=== PATIENT | female | born 1970 ===

== ENCOUNTER 2018-03-03 06:24 | Day surgery (SDC) | payer OTHER ==
[~2018-03-03] VITALS: Ht 152.4 cm; Wt 67.1 kg
[2018-03-03] MEDS ORDERED: SYNTHROID175 MCG (06:40)
[2018-03-03] MEDS ORDERED: DICLOFENAC POTA50 MG PO (13:45)
[2018-03-03] MEDS ORDERED: PERCOCET 5-3251 EACH PO (13:45)
[2018-03-03] MEDS ORDERED: COLACE100 MG PO (13:45)
== END 2018-03-03 17:50 | disposition home or self-care (01) ==
LOC: ER 06:24 → O/R 07:35 → CIR.AMB 13:00
DX: K64.1 Second degree hemorrhoids (principal); K64.4 Residual hemorrhoidal skin tags; K64.8 Other hemorrhoids; K62.89 Other specified diseases of anus and rectum